=== PATIENT | male | born 1930 | race Caucasian/White ===

== ENCOUNTER → 2016-09-08 | Outpatient (CLI) | payer OTHER ==
[2016-09-08 13:10] LABS: BASO % 0.5 %; BASO ABS # 0.05 K/uL (0-0.2); COMPLETE YES; EOS % 4.4 %; HEMATOCRIT 32.2 % (42-52); IG% 0.4 %; MEAN CELL VOLUME 81.5 fL (80-100); MEAN CORPUSCULAR HEMOGLOBIN 24.6 pg (25-34); MEAN CORPUSCULAR HGB CONC 30.1 g/dl (32-36); MEAN PLATELET VOLUME 9.5 fL (7.4-10.4); MONO % 7.4 %; NEUT % 76.3 %; PLATELET COUNT 411 K/uL (130-400); RED BLOOD COUNT 3.95 M/uL (4.7-6.1); WHITE BLOOD COUNT 10.03 K/uL (4.8-10.8)
[2016-09-08 13:49] LABS: ALT/SGPT 14 U/L (12-78); AST/SGOT 11 U/L (15-37); BLOOD UREA NITROGEN 26 mg/dl (7-18); BUN/CREATININE RATIO 20.4 (10-20); CALCIUM 9.1 mg/dl (8.5-10.1); CARBON DIOXIDE 32 mmol/L (21-32); CHLORIDE 104 mmol/L (98-107); CHOLESTEROL 143 mg/dl (0-200); CHOLESTEROL/HDL RATIO 2.2; GLUCOSE 107 mg/dl (70-99); HDL CHOLESTEROL 65 mg/dl; LDL CHOLESTEROL CALCULATED 54 mg/dl; MAGNESIUM 1.7 mg/dl (1.8-2.4); SODIUM 143 mmol/L (136-145); TRIGLYCERIDES 121 mg/dl (0-150); VERY LOW DENSITY LIPOPROT CALC 24 mg/dl
== END | disposition home or self-care (01) ==
LOC: C.LABMFLN 07:35
PROVIDERS: ATTEND Family Medicine
DX: E83.42 Hypomagnesemia (principal); E78.00 Pure hypercholesterolemia, unspecified; I10 Essential (primary) hypertension; E11.9 Type 2 diabetes mellitus without complications; J44.9 Chronic obstructive pulmonary disease, unspecified; I50.9 Heart failure, unspecified; D63.8 Anemia in other chronic diseases classified elsewhere

== ENCOUNTER → 2016-10-04 | Outpatient (CLI) | payer OTHER ==
[2016-10-04 13:14] LABS: HEMATOCRIT 34.1 % (42-52)
[2016-10-04 14:15] LABS: ESTIMATED AVERAGE GLUCOSE 146 mg/dl; HA1C FLAG Normal (Normal)
== END | disposition home or self-care (01) ==
LOC: C.LABMFLN 09:21
PROVIDERS: ATTEND Family Medicine
DX: D63.8 Anemia in other chronic diseases classified elsewhere (principal); E11.9 Type 2 diabetes mellitus without complications

== ENCOUNTER → 2016-10-11 | Outpatient (CLI) | payer OTHER ==
[2016-10-11 13:13] LABS: BASO % 0.7 %; BASO ABS # 0.05 K/uL (0-0.2); COMPLETE YES; EOS % 4.2 %; HEMATOCRIT 35.7 % (42-52); IG% 0.4 %; LYMPH % 9.7 %; LYMPH ABS # 0.73 K/uL (1.2-3.4); MEAN CELL VOLUME 84.6 fL (80-100); MEAN CORPUSCULAR HEMOGLOBIN 25.6 pg (25-34); MEAN CORPUSCULAR HGB CONC 30.3 g/dl (32-36); MONO % 9.5 %; NEUT % 75.5 %; PLATELET COUNT 289 K/uL (130-400); RED BLOOD COUNT 4.22 M/uL (4.7-6.1); WHITE BLOOD COUNT 7.54 K/uL (4.8-10.8)
[2016-10-11 13:35] LABS: BLOOD UREA NITROGEN 29 mg/dl (7-18); BUN/CREATININE RATIO 22.5 (10-20); CALCIUM 9.3 mg/dl (8.5-10.1); CARBON DIOXIDE 34 mmol/L (21-32); CHLORIDE 103 mmol/L (98-107); GLUCOSE 85 mg/dl (70-99); POTASSIUM 4.6 mmol/L (3.5-5.1); SODIUM 142 mmol/L (136-145)
[2016-10-11 13:41] LABS: TOTAL IRON BINDING CAPACITY 364 mcg/dl (250-450)
== END | disposition home or self-care (01) ==
LOC: C.LABMFLN 08:27
PROVIDERS: ATTEND Family Medicine
DX: J44.9 Chronic obstructive pulmonary disease, unspecified (principal); I50.9 Heart failure, unspecified; D50.9 Iron deficiency anemia, unspecified

== ENCOUNTER → 2017-03-09 | Outpatient (CLI) | payer OTHER ==
[2017-03-09 13:26] LABS: BASO % 0.7 %; BASO ABS # 0.05 K/uL (0-0.2); COMPLETE YES; EOS % 7.8 %; HEMATOCRIT 38.1 % (42-52); IG% 0.3 %; LYMPH % 13.1 %; LYMPH ABS # 0.88 K/uL (1.2-3.4); MEAN CELL VOLUME 91.6 fL (80-100); MEAN CORPUSCULAR HEMOGLOBIN 28.4 pg (25-34); MEAN PLATELET VOLUME 10.5 fL (7.4-10.4); MONO % 8.7 %; NEUT % 69.4 %; PLATELET COUNT 270 K/uL (130-400); RED BLOOD COUNT 4.16 M/uL (4.7-6.1)
[2017-03-09 13:30] LABS: ESTIMATED AVERAGE GLUCOSE 137 mg/dl; HA1C FLAG Normal (Normal)
[2017-03-09 13:51] LABS: ALB/GLOB RATIO 1.2 (0.9-2); ALT/SGPT 18 U/L (12-78); AST/SGOT 13 U/L (15-37); BLOOD UREA NITROGEN 29 mg/dl (7-18); BUN/CREATININE RATIO 23.9 (10-20); CALCIUM 9.2 mg/dl (8.5-10.1); CARBON DIOXIDE 32 mmol/L (21-32); CHLORIDE 107 mmol/L (98-107); GLUCOSE 111 mg/dl (70-99); MAGNESIUM 1.9 mg/dl (1.8-2.4); POTASSIUM 4.3 mmol/L (3.5-5.1); SODIUM 143 mmol/L (136-145); TOTAL IRON BINDING CAPACITY 289 mcg/dl (250-450)
[2017-03-09 13:53] LABS: ALKALINE PHOSPHATASE 74 U/L (45-117); CHOLESTEROL 137 mg/dl (0-200); CHOLESTEROL/HDL RATIO 3.1; HDL CHOLESTEROL 44 mg/dl; LDL CHOLESTEROL CALCULATED 73 mg/dl; TRIGLYCERIDES 100 mg/dl (0-150); URIC ACID 5.3 mg/dl (2.6-7.2); VERY LOW DENSITY LIPOPROT CALC 20 mg/dl
== END | disposition home or self-care (01) ==
LOC: C.LABMFLN 07:46
PROVIDERS: ATTEND Family Medicine
DX: D63.8 Anemia in other chronic diseases classified elsewhere (principal); M10.9 Gout, unspecified; E83.42 Hypomagnesemia; E78.00 Pure hypercholesterolemia, unspecified; I10 Essential (primary) hypertension; E11.9 Type 2 diabetes mellitus without complications

== ENCOUNTER → 2017-07-22 | Outpatient (CLI) | payer OTHER ==
[2017-07-22 12:45] LABS: BASO % 0.4 %; BASO ABS # 0.03 K/uL (0-0.2); COMPLETE YES; EOS % 5.4 %; HEMATOCRIT 38.9 % (42-52); IG% 0.3 %; LYMPH % 14.5 %; LYMPH ABS # 1.01 K/uL (1.2-3.4); MEAN CELL VOLUME 92.2 fL (80-100); MEAN CORPUSCULAR HEMOGLOBIN 29.9 pg (25-34); MEAN CORPUSCULAR HGB CONC 32.4 g/dl (32-36); MEAN PLATELET VOLUME 10.3 fL (7.4-10.4); MONO % 8.7 %; NEUT % 70.7 %; PLATELET COUNT 268 K/uL (130-400); RED BLOOD COUNT 4.22 M/uL (4.7-6.1); WHITE BLOOD COUNT 6.98 K/uL (4.8-10.8)
[2017-07-22 13:15] LABS: ESTIMATED AVERAGE GLUCOSE 137 mg/dl; HA1C FLAG Normal (Normal)
[2017-07-22 13:17] LABS: ALB/GLOB RATIO 1.1 (0.9-2); ALT/SGPT 18 U/L (12-78); AST/SGOT 19 U/L (15-37); BLOOD UREA NITROGEN 22 mg/dl (7-18); BUN/CREATININE RATIO 17.3 (10-20); CALCIUM 8.9 mg/dl (8.5-10.1); CARBON DIOXIDE 30 mmol/L (21-32); CHLORIDE 102 mmol/L (98-107); CHOLESTEROL 144 mg/dl (0-200); CREATININE 1.28 mg/dl (0.60-1.40); GLUCOSE 109 mg/dl (70-99); POTASSIUM 3.8 mmol/L (3.5-5.1); SODIUM 138 mmol/L (136-145); TRIGLYCERIDES 112 mg/dl (0-150); VERY LOW DENSITY LIPOPROT CALC 22 mg/dl
[2017-07-22 13:21] LABS: ALKALINE PHOSPHATASE 73 U/L (45-117); CHOLESTEROL/HDL RATIO 2.8; HDL CHOLESTEROL 52 mg/dl; LDL CHOLESTEROL CALCULATED 70 mg/dl; TOTAL IRON BINDING CAPACITY 281 mcg/dl (250-450)
[2017-07-22 13:33] LABS: CREATININE RANDOM URINE 71.2 mg/dl
[2017-07-22 13:45] LABS: RATIO 164.3 mcg/mg (0-30.0)
== END | disposition home or self-care (01) ==
LOC: C.LABMFLN 08:06
PROVIDERS: ATTEND Family Medicine
DX: E83.42 Hypomagnesemia (principal); E78.00 Pure hypercholesterolemia, unspecified; I11.0 Hypertensive heart disease with heart failure; I50.9 Heart failure, unspecified; D50.9 Iron deficiency anemia, unspecified